=== PATIENT | female | born 1995 | race Caucasian/White ===

== ENCOUNTER 2022-09-05 20:50 | Emergency (ER) | payer OTHER ==
[~2022-09-05] VITALS: Ht 154.9 cm; Wt 79.8 kg
[2022-09-05 20:59] VITALS: BP_SYST 121
[2022-09-05 22:04] LABS: MEAN CORPUSCULAR HGB CONC 34 % (32-36); RED CELL DISTRIBUTION WIDTH 13.5 % (9.0-15.0)
[2022-09-05 22:09] LABS: BASOPHILS # (AUTO) 0.1 K/uL (0.0-0.2); BASOPHILS % (AUTO) 0.7 % (0.0-2.0); EOSINOPHILS # (AUTO) 0.1 K/uL (0.0-0.4); EOSINOPHILS % (AUTO) 1.3 % (0.0-4.0); HEMATOCRIT 41.6 % (36-48); HEMOGLOBIN 14.2 g/dL (12.0-16.0); LYMPHOCYTES # (AUTO) 2.9 K/uL (1.0-5.5); LYMPHOCYTES % (AUTO) 31.8 % (20.5-51.5); MEAN CORPUSCULAR HEMOGLOBIN 32 pg (27-31); MEAN CORPUSCULAR VOLUME 93 fL (79.0-98.0); MONOCYTES # (AUTO) 0.7 K/uL (0.0-1.0); MONOCYTES % (AUTO) 8.1 % (1.7-9.3); NEUTROPHILS # (AUTO) 5.2 K/uL (1.8-7.7); NEUTROPHILS % (AUTO) 58.1 % (40.0-70.0); PLATELET COUNT (AUTO) 244 K/uL (130-430)
[2022-09-05 22:14] LABS: CALCIUM 8.9 mg/dL (8.4-11.0); CREATININE 0.72 mg/dL (0.55-1.30)
[2022-09-05 22:26] LABS: ALBUMIN 3.8 g/dL (3.4-4.8); TOTAL BILIRUBIN 0.5 mg/dL (0.0-1.0)
[2022-09-06] MEDS ORDERED: IBUPROFEN 600 MG TABLET PO ONE (00:15)
[2022-09-06 02:07] VITALS: BP_SYST 121
== END 2022-09-06 02:07 | disposition home or self-care (01) ==
LOC: SED 20:50
DX: N93.9 Abnormal uterine and vaginal bleeding, unspecified (principal); Z79.899 Other long term (current) drug therapy
CPT/HCPCS: 36415; 76856-TC; 80053; 81025; 84702; 85025; 99284